=== PATIENT | female | born 1950 | race Caucasian/White ===

== ENCOUNTER 2018-07-11 08:02 | Day surgery (SDC) | payer OTHER ==
[~2018-07-11 08:02] MED LIST: BESIFLOXACIN HCL 0.6% OPH SUSP 5 ML BOTTLE OS PRN; CYCLOPENTOLATE 0.2%/PHENYLEPHRINE 1% OPH SOLN 2 ML OS PRN; KETOROLAC TROMETHAMINE 0.45% 4 DROP/0.4 ML DROPERETTE OS PRN; TETRACAINE HCL 0.5% OPH SOLN 0.6 ML DROPERETTE OS PRN; TROPICAMIDE 1% OPH SOLN 3 ML OS PRN
[2018-07-11] MEDS: CYCLOPENTOLATE 0.2%/PHENYLEPHRINE 1% OPH SOLN 2 ML OS PRN ×3 (08:25→08:47)
[2018-07-11] MEDS: BESIFLOXACIN HCL 0.6% OPH SUSP 5 ML BOTTLE OS PRN ×4 (08:25→09:25)
[2018-07-11] MEDS: TROPICAMIDE 1% OPH SOLN 3 ML OS PRN ×3 (08:25→08:47)
[2018-07-11] MEDS: TETRACAINE HCL 0.5% OPH SOLN 0.6 ML DROPERETTE OS PRN ×3 (08:25→09:05)
[2018-07-11] MEDS ORDERED: MIDAZOLAM 2 MG/2 ML INJ ONE (08:45)
[2018-07-11] MEDS: EPINEPHRINE INJ/PF 1 MG/1 ML AMPULE ONE ×2 (09:10→09:15)
[2018-07-11] MEDS: CHONDR SU A NA/HYALUR INTRAOC KIT (SURGICARE) ONE ×2 (09:10→09:15)
[2018-07-11] MEDS: TOBRAMYCIN SULFATE/DEXAMETH OPH OINTMENT 3.5 GM ONE ×2 (09:10→09:25)
[2018-07-11] MEDS: LIDOCAINE 1% INJ-PF (10 MG/ML) 30 ML SDV ONE ×2 (09:10→09:15)
== END 2018-07-11 10:05 | disposition home or self-care (01) ==
LOC: SC 08:02
PROVIDERS: ATTEND Ophthalmology
DX: H25.12 Age-related nuclear cataract, left eye (principal); I10 Essential (primary) hypertension; E78.00 Pure hypercholesterolemia, unspecified; Z79.899 Other long term (current) drug therapy; Z79.891 Long term (current) use of opiate analgesic; Z87.891 Personal history of nicotine dependence; Z88.5 Allergy status to narcotic agent; Z85.3 Personal history of malignant neoplasm of breast
CPT/HCPCS: 66984; V2630; J2250; J3490 ×3; J0171; 142

== ENCOUNTER 2018-07-25 10:42 | Day surgery (SDC) | payer OTHER ==
[~2018-07-25 10:42] MED LIST changes: -BESIFLOXACIN HCL 0.6% OPH SUSP 5 ML BOTTLE OS PRN; +CHONDR SU A NA/HYALUR INTRAOC KIT (SURGICARE) ONE; -CYCLOPENTOLATE 0.2%/PHENYLEPHRINE 1% OPH SOLN 2 ML OS PRN; +EPINEPHRINE INJ/PF 1 MG/1 ML AMPULE ONE; +KETOROLAC TROMETHAMINE 0.45% 4 DROP/0.4 ML DROPERETTE OD PRN; -KETOROLAC TROMETHAMINE 0.45% 4 DROP/0.4 ML DROPERETTE OS PRN; +LIDOCAINE 1% INJ-PF (10 MG/ML) 30 ML SDV ONE; -TETRACAINE HCL 0.5% OPH SOLN 0.6 ML DROPERETTE OS PRN; -TROPICAMIDE 1% OPH SOLN 3 ML OS PRN
[2018-07-25] MEDS ORDERED: MIDAZOLAM 2 MG/2 ML INJ ONE (11:01)
[2018-07-25] MEDS: TETRACAINE HCL 0.5% OPH SOLN 0.6 ML DROPERETTE OD PRN ×3 (11:40→12:12)
[2018-07-25] MEDS: TROPICAMIDE 1% OPH SOLN 3 ML OD PRN ×3 (11:40→11:59)
[2018-07-25] MEDS: BESIFLOXACIN HCL 0.6% OPH SUSP 5 ML BOTTLE OD PRN ×4 (11:40→12:31)
[2018-07-25] MEDS: CYCLOPENTOLATE 0.2%/PHENYLEPHRINE 1% OPH SOLN 2 ML OD PRN ×3 (11:40→11:59)
[2018-07-25] MEDS: TOBRAMYCIN SULFATE/DEXAMETH OPH OINTMENT 3.5 GM ONE ×2 (12:23→12:31)
== END 2018-07-25 13:11 | disposition home or self-care (01) ==
LOC: SC 10:42
PROVIDERS: ATTEND Ophthalmology
DX: H25.11 Age-related nuclear cataract, right eye (principal); I10 Essential (primary) hypertension; E78.00 Pure hypercholesterolemia, unspecified; Z79.899 Other long term (current) drug therapy; Z88.5 Allergy status to narcotic agent; Z98.42 Cataract extraction status, left eye; Z85.3 Personal history of malignant neoplasm of breast
CPT/HCPCS: 66984; V2630; J2250; J3490 ×3; J0171; 142